=== PATIENT | female | born 1975 | race African-American/Black ===

== ENCOUNTER 2022-05-08 10:57 | Outpatient (CLI) | payer OTHER, SELFPAY ==
[2022-05-08 11:15] LABS: Hematocrit 29.8 % (37.0-47.0); Hemoglobin 8.3 g/dL (12.0-15.0); Immature Platelet Fraction Pct 4.7 % (0.9-11.2); Mean Corpuscular HGB Conc 27.9 g/dl (32-36); Mean Corpuscular Hemoglobin 18.7 pg (26-34); Mean Corpuscular Volume 67.1 fl (80-100); Mean Platelet Volume 10.3 fl (7.4-10.4); Platelet Count Result 247 k/mm3 (150-375); Red Blood Count 4.44 M/mm3 (4.2-5.4); Red Cell Distribution Width 21.9 % (11.5-14.5); White Blood Count 4.7 K/mm3 (4.5-10.0)
[2022-05-08 12:18] LABS: Iron 19 ug/dL (37-170)
[2022-05-08 12:28] LABS: Percent Iron Saturation 3 % (20-50)
[2022-05-08 12:56] LABS: Ferritin 4.32 ng/mL (6.24-137)
== END 2022-05-08 10:58 | disposition home or self-care (01) ==
LOC: ANHLAB 10:58
PROVIDERS: PCP Nurse Practitioner Family; Visit Provider Internal Medicine Hematology & Oncology
DX: D50.0 Iron deficiency anemia secondary to blood loss (chronic) (principal)
CPT/HCPCS: 36415; 82607; 82728; 83540; 83550; 85027; 85055

== ENCOUNTER 2022-05-20 00:15 | Day surgery (SDC) | payer OTHER, SELFPAY ==
[2022-05-14 11:14] VITALS: BMI 29.1
--- NOTE | 2022-05-14 11:23 | PC.NURSE ---
Report to the Outpatient Waiting Room, entrance under the green pavilion located off [facility], at time 0845 on date 05/20/22. OR Time: 1045. - You and your visitor will be asked a series of questions to screen for COVID 19 for your protection. - Only one visitor is allowed at this time. - The patient visitor is requested to leave or wait in car when not with patient. - A mask is required within the hospital. Patients may have clear liquids (water, carbonated beverages, clear teas, apple juice) until 3 hours prior to surgery with a maximum of 20 ounces. - No food from midnight until time of surgery Take the following medications with a SIP of water the morning of surgery: NONE Medications to discontinue per physician: VITAMINS/SUPPLEMENTS Date to take last dose: 05/16/22 Please no make-up, nail romanian, hairspray, perfume, deodorant, or body powder the day of surgery. No jewelry (including any body piercings) or valuables the day of surgery, leave them at home. Please take a shower or bath the night before, or the morning of, surgery with an antibacterial soap. Wear comfortable, loose fitting clothing. - Jewelry must be removed prior to entering the operating room. Rings and piercings that are not removed may be cut off. - The hospital will not accept responsibility for valuables. - Please leave all valuables, including medications, at home the day of surgery. If you are going home after surgery, a licensed wood pile driver operator must drive you home. - NO public transportation without another adult. - We recommend that an adult stay with you for 24 hours following discharge. - We also recommend that you do not drive, make important decision, drink alcoholic beverages, or take any drugs that were not prescribed by your health care provider for at least 24 hours after your discharge time. Follow any additional instructions given to you from your surgeon. If you or anyone in your household have experienced Covid symptoms in the past week, please notify your surgeon or the nurse liaison at the phone number below for possible testing. Telephone instructions given to PT - WILMER METCALF and asked if any additional questions and then verbalized understanding. Patient advised to call surgeon office or pre surgery nurse liaison [phone] if any additional questions.
--- NOTE | 2022-05-19 20:36 | PM.IMHP ---
H&P: HPI History of Present Illness Date/Time: 05/19/22 20:36 Chief Complaint: Endometrial mass Narrative: Kusum is a 46yo, who presents for scheduled surgery. She has a h/o irregular/heavy periods. She states that after her hysteroscopy D&C in 06/2020 (benign endometrium), her periods improved. However, she is starting to have increasingly heavier and painful periods again. Heavy and painful x2 days (dime sized clots); then lighten the last 3 days. She has a known history of fibroid uterus, central 6.2cm fibroid in 05/2020. She had repeat US performed recently showing the mass has increased to 8cm and was unable to visualize the endometrium (uterus measures 14cm). She was also noted to have bilateral ovarian masses (right 4.7cm, left complex ~3cm); tumor markers were performed and were negative. She is s/p parathyroidectomy/partial thyroidectomy. She has a long standing h/o iron deficiency anemia and initially wanted to proceed with hysterectomy, but has a h/o midline vertical c/s x2 + BTL. Review of Systems Review of Systems: All systems reviewed & are unremarkable except as noted in HPI and below PMFSH Past Medical History Medical History Abnormal thyroid biopsy GERD (gastroesophageal reflux disease) Procedure indicated Hysteroscopy with removal of submucous Surgical History Surgical History Delivery by section H/O parathyroidectomy History of tubal ligation Family History Family History Grandparent Heart disease Mother Congestive heart failure Father Cerebrovascular accident Sibling Cervical cancer Social History Social History Smoking status: Never smoker Alcohol intake: current Alcohol use details: 2/MONTH Substance use: current Substance use type: marijuana Living arrangements: with family Additional living arrangements comments: CHILDREN Gender identity (if verbalized by the patient): Female Sexual Orientation (if Verbalized by the Patient): Straight or Heterosexual Spiritual care concerns: No Meds Home Medications and Allergies Home Medications Medication Instructions Recorded Confirmed Type cholecalciferol (vitamin D3) 50 50 mcg PO EVERY OTHER DAY 05/14/22 05/14/22 History mcg (2,000 unit) capsule ferrous sulfate 325 mg (65 mg 325 mg PO DAILY 05/14/22 05/14/22 History iron) tablet (FeroSul) Allergies Allergy/AdvReac Type Severity Reaction Status Date / Time No Known Allergies Allergy Verified 05/14/22 11:13 Exam Const: General: cooperative, healthy appearing, comfortable and no acute distress Resp: Effort & Inspection: normal respiratory effort Cardio: Rate: regular rate GI: Inspection: normal to inspection GI Palp: No abdominal tenderness and Yes Soft to palpation : Other: deferred to OR Skin: General skin exam: normal color Neuro: General: patient oriented x3 Extrem: General: normal to inspection Psych: Appearance: grossly normal Affect: normal affect Attitude: cooperative Assessment and Plan Assessment and plan (1) Endometrial mass: Code(s): N94.89 - Other specified conditions associated with female genital organs and menstrual cycle Status: Acute (2) Fibroid uterus: Code(s): D25.9 - Leiomyoma of uterus, unspecified Status: Acute (3) Iron deficiency anemia: Code(s): D50.9 - Iron deficiency anemia, unspecified Status: Acute Plan - Proceed with hysteroscopy, D&C and possible hysteroscopic myomectomy - Risks and benefits explained in detail and all questions answered
--- NOTE | 2022-05-20 07:02 | WPDANESEPPF ---
Anes - Initial Pre Proc Eval Procedure: Operation Date: 05/20/22 10:45 Proposed Procedures p Hysteroscopy Dilation and Curettage - Marysol Awan MD Date/Time: 05/20/22 07:02 Surgeon: Marysol Awan MD Pre Op Diagnosis: menometrorrhagia Patient Data Age: 47 Gender: F Height: 1.66 m Weight: 80.74 kg Allergies Allergy/AdvReac Type Severity Reaction Status Date / Time No Known Allergies Allergy Verified 05/14/22 11:13 Home Medications Medication Instructions Recorded Confirmed Type cholecalciferol (vitamin D3) 50 50 mcg PO EVERY OTHER DAY 05/14/22 05/14/22 History mcg (2,000 unit) capsule ferrous sulfate 325 mg (65 mg 325 mg PO DAILY 05/14/22 05/14/22 History iron) tablet (FeroSul) Patient hx anesthesia problems: none Family hx anesthesia problems: none Results Review: All pre-operative results and documents have been reviewed as part of the pre-operative evaluation. PENDING SALE TO [facility] Past Medical History Medical History (Updated 05/20/22 @ 07:02 by Denver Arcos DO) Abnormal thyroid biopsy GERD (gastroesophageal reflux disease) Iron deficiency anemia Procedure indicated Hysteroscopy with removal of submucous Surgical History Surgical History Delivery by section H/O parathyroidectomy History of tubal ligation Family History Family History Grandparent Heart disease Mother Congestive heart failure Father Cerebrovascular accident Sibling Cervical cancer Social History Social History Smoking status: Never smoker Alcohol intake: current Alcohol use details: 2/MONTH Substance use: current Substance use type: marijuana Living arrangements: with family Additional living arrangements comments: CHILDREN Gender identity (if verbalized by the patient): Female Sexual Orientation (if Verbalized by the Patient): Straight or Heterosexual Spiritual care concerns: No Anes - Eval Final PreProcedure Day of Procedure 05/20/22 07:02 Patient weight: overweight Heart: regular rate and rhythm Lungs: clear to auscultation Airway: Mallampati scale class II Neurological: alert and oriented Last oral intake: >/= 8 hours ASA classification: II Emergent: no Anesthetic plan: proceed Anesthesia type and monitoring: general GIVS and standard monitoring Results Review: All pre-operative results and documents have been reviewed as part of the pre-operative evaluation. Informed Consent: The patient's anesthetic plan and its attendant risks and benefits were discussed with the patient/family/POA. Questions were solicited and answers provided to the satisfaction of the patient/family/POA.
--- NOTE | 2022-05-20 07:06 | WPDHPUPDATE1 ---
History and Physical Update Update Date/Time: 05/20/22 07:06 History and Physical has been reviewed, including an updated exam of the patient. There are NO changes in the patient's condition. Risks, benefits, and alternatives have been discussed and questions answered. Patient agrees to proceed with procedure.
[2022-05-20 09:00] VITALS: BP 140/90; PULSE 95; RESP 16; TEMP 36.7; O2SAT 100
[2022-05-20] MEDS: LACTATED RINGERS 1,000 ML 30 ML IV CONT (09:30)
[2022-05-20] MEDS: ACETAMINOPHEN 500 MG TABLET 1000 MG PO (09:56)
--- NOTE | 2022-05-20 11:30 | W.PM.PROC2 ---
Procedure Note - Detailed Date of Procedure 05/20/22 Pre-op Diagnosis menometrorrhagia Post-op Diagnosis Other (Fibroid uterus) Procedure Performed Hysteroscopy with dilation and curettage Surgeon Marysol Awan MD Anesthesia MAC Jatin Noe is a 46yo, who presents for scheduled surgery. She has a h/o irregular/heavy periods. She states that after her hysteroscopy D&C in 06/2020 (benign endometrium), her periods improved. However, she is starting to have increasingly heavier and painful periods again. Heavy and painful x2 days (dime sized clots); then lighten the last 3 days. She has a known history of fibroid uterus, central 6.2cm fibroid in 05/2020. She had repeat US performed recently showing the mass has increased to 8cm and was unable to visualize the endometrium (uterus measures 14cm). She was also noted to have bilateral ovarian masses (right 4.7cm, left complex ~3cm); tumor markers were performed and were negative. She is s/p parathyroidectomy/partial thyroidectomy. She has a long standing h/o iron deficiency anemia and initially wanted to proceed with hysterectomy, but has a h/o midline vertical c/s x2 + BTL. Findings Uterus slightly mobile; 12wk size; not too wide; anterior fibroid palpated. Sounded to 12cm. Large intracavitary fibroid obstructing view of the tubal ostia. D&C performed w/o issue and adequate sample obtained. Good hemostasis at end of case. Description of Procedure Kusum was taken operating room where she was placed under sedation without complication. She was then prepped and draped in the usual sterile fashion in a dorsal lithotomy position with her legs in low Cody stirrups. A time-out was performed and no perioperative antibiotics were indicated. An exam under anesthesia was performed and revealed a 12 week size uterus, anteverted, with a large fibroid palpated on the anterior wall, good descensus and did not feel too wide (robotic assisted hysterectomy likely possible). A bivalve speculum was placed within the vagina where the anterior lip of cervix was grasped with a single-tooth tenaculum. The uterus was sounded to 12 cm. The cervix was then serially dilated to allow for the hysteroscope. The hysteroscope was advanced into the uterus where a large fibroid was taking up almost the entire cavity. I was unable to visualize either tubal ostia. Hysteroscope was removed and a gentle curettage was performed without complications and an adequate sample was obtained. Good hemostasis was noted. All instruments were removed from the vagina. Sponge, lap, instrument, needle counts were correct at the end the procedure. Patient was awoken from anesthesia and taken to recovery in a stable condition with plans of same-day discharge home. Estimated Blood Loss 5 Pathology Yes Complications No immediate complications Condition Stable Disposition Same day [facility] Billing Surgery - Charge Forward: Surgery Billing
[2022-05-20 11:35] VITALS: BP 118/77; PULSE 95; RESP 14; O2SAT 96
[2022-05-20 12:10] VITALS: BP 122/76; PULSE 72; RESP 16
[2022-05-20 12:20] VITALS: BP 126/95; PULSE 76; RESP 16
== END 2022-05-20 12:45 | disposition home or self-care (01) ==
PROVIDERS: PCP Nurse Practitioner Family; Visit Provider Obstetrics & Gynecology
PROC: 0U5B8ZZ Destruction of Endometrium, Via Natural or Artificial Opening Endoscopic (ICD-10-PCS; CPT 58563; principal; 2022-05-20 10:45)
DX: N94.89 Other specified conditions associated with female genital organs and menstrual cycle (principal); D25.9 Leiomyoma of uterus, unspecified; D50.9 Iron deficiency anemia, unspecified; F12.90 Cannabis use, unspecified, uncomplicated; K21.9 Gastro-esophageal reflux disease without esophagitis; N85.4 Malposition of uterus
CPT/HCPCS: 58561; 88305; A9270; J2250; J2405; J2704; J3010; J7030; J7120

== ENCOUNTER 2022-08-23 12:34 | Outpatient (CLI) | payer OTHER, SELFPAY ==
[2022-08-23 13:13] LABS: Hematocrit 34.3 % (37.0-47.0); Hemoglobin 9.5 g/dL (12.0-15.0)
== END 2022-08-23 12:35 | disposition home or self-care (01) ==
LOC: ANHSURGERY 12:38
PROVIDERS: Anesthesiology; PCP Nurse Practitioner Family; Visit Provider Obstetrics & Gynecology
DX: Z01.818 Encounter for other preprocedural examination (principal); D50.9 Iron deficiency anemia, unspecified; D25.9 Leiomyoma of uterus, unspecified
CPT/HCPCS: 36415; 85014; 85018; 86850; 86900; 86901

== ENCOUNTER 2022-08-26 12:19 | Inpatient (IN) | payer OTHER, SELFPAY ==
[2022-08-20 14:42] VITALS: BMI 29.1
--- NOTE | 2022-08-20 14:44 | PC.NURSE ---
Report to the Outpatient Waiting Room, entrance under the green pavilion located off [facility], at time 6:00 on date 08/26/22. Planned Procedure Time: 7:30. Time changes happen often and if your time is changed the preop area will call you the afternoon before. - You and your visitor will be asked to self-screen and do not enter if you have any COVID symptoms. - We encourage only one visitor and NO visitors under age 16 are allowed at this time. Your visitor will receive communication by the phone number that is given day of service. - The patient visitor is requested to social distance or may leave the building when not with patient due to restrictions. - A mask is OPTIONAL within the hospital. Patients may have clear liquids (water, carbonated beverages, clear teas, apple juice) until 3 hours prior to surgery (4:30) with a maximum of 20 ounces. - No food from midnight until time of surgery Take the following medications with a SIP of water the morning of surgery: NONE Medications to discontinue per physician: VITAMINS/SUPPLEMENTS Date to take last dose: 08/22/22 Please no make-up, nail beninese, hairspray, perfume, deodorant, or body powder the day of surgery. No jewelry (including any body piercings) or valuables the day of surgery, leave them at home. Please take a shower or bath the night before, or the morning of, surgery with an antibacterial soap. Wear comfortable, loose fitting clothing. - Jewelry must be removed prior to entering the operating room. Rings and piercings that are not removed may be cut off. - The hospital will not accept responsibility for valuables. - Please leave all valuables, including medications, at home the day of surgery. If you are going home after surgery, a licensed patient transportation driver must drive you home. - NO public transportation without another adult. - We recommend that an adult stay with you for 24 hours following discharge. - We also recommend that you do not drive, make important decision, drink alcoholic beverages, or take any drugs that were not prescribed by your health care provider for at least 24 hours after your discharge time. Follow any additional instructions given to you from your surgeon. If you or anyone in your household have experienced Covid symptoms in the past week, please notify your surgeon or the nurse liaison at the phone number below for possible testing. Telephone instructions given to PT - WILMER METCALF and asked if any additional questions and then verbalized understanding. Patient advised to call surgeon office or pre surgery nurse liaison [phone] if any additional questions.
--- NOTE | 2022-08-25 10:19 | PM.IMHP ---
H&P: HPI History of Present Illness Date/Time: 08/25/22 10:19 Chief Complaint: AUB/ fibroid uterus Narrative: Kusum is a 47yo P2002, who presents for scheduled surgery. She underwent HSC/D&C with benign pathology 05/2022. She has a h/o irregular/heavy periods. She states that after her hysteroscopy D&C in 06/2020 (benign endometrium), her periods improved. However, she is starting to have increasingly heavier and painful periods again. Heavy and painful x2 days (dime sized clots); then lighten the last 3 days. She has a known history of fibroid uterus, central 6.2cm fibroid in 05/2020. She had repeat US performed 04/2022 showing the mass has increased to 8cm and was unable to visualize the endometrium (uterus measures 14cm). She was also noted to have bilateral ovarian masses (right 4.7cm, left complex ~3cm); tumor markers were performed and were negative. She has a normal pap smear 11/2021. She has a long standing h/o iron deficiency anemia and wants to proceed with hysterectomy. She has a h/o midline vertical c/s x2 + BTL. Review of Systems Review of Systems: All systems reviewed & are unremarkable except as noted in HPI and below PMFSH Past Medical History Medical History Abnormal thyroid biopsy GERD (gastroesophageal reflux disease) Iron deficiency anemia Procedure indicated Hysteroscopy with removal of submucous Surgical History Surgical History Delivery by section H/O parathyroidectomy History of tubal ligation Family History Family History Grandparent Heart disease Mother Congestive heart failure Father Cerebrovascular accident Sibling Cervical cancer Social History Social History Smoking status: Never smoker Alcohol intake: current Alcohol use details: 2/MONTH Substance use: current Substance use type: marijuana Additional living arrangements comments: CHILDREN Gender identity (if verbalized by the patient): Female Sexual Orientation (if Verbalized by the Patient): Straight or Heterosexual Spiritual care concerns: No Meds Home Medications and Allergies Home Medications Medication Instructions Recorded Confirmed Type ferrous sulfate 325 mg (65 mg 325 mg PO DAILY 05/14/22 08/20/22 History iron) tablet (FeroSul) Allergies Allergy/AdvReac Type Severity Reaction Status Date / Time No Known Allergies Allergy Verified 08/20/22 14:40 Exam Const: General: cooperative, healthy appearing, comfortable and no acute distress Resp: Effort & Inspection: normal respiratory effort Cardio: Rate: regular rate GI: GI Palp: No abdominal tenderness and Yes Soft to palpation : Other: deferred to OR Skin: General skin exam: normal color Neuro: General: patient oriented x3 Extrem: General: normal to inspection Psych: Appearance: grossly normal Affect: normal affect Attitude: cooperative Assessment and Plan Assessment and plan (1) Fibroid uterus: Qualifiers: Uterine leiomyoma location: unspecified location Qualified Code(s): D25.9 - Leiomyoma of uterus, unspecified Code(s): D25.9 - Leiomyoma of uterus, unspecified Status: Acute (2) Iron deficiency anemia: Qualifiers: Iron deficiency anemia type: chronic blood loss Qualified Code(s): D50.0 - Iron deficiency anemia secondary to blood loss (chronic) Code(s): D50.9 - Iron deficiency anemia, unspecified Status: Acute Plan - Proceed with robotic assisted total laparoscopic hysterectomy with bilateral salpingectomy, cystoscopy, possible unilateral oophorectomy, and possible ELAP - risks and benefits in detail
[2022-08-26] VITALS (17 sets, daily range): BP systolic 134–151; BP diastolic 78–90; PULSE 75–105; RESP 14–20; TEMP 36.3–37.7; O2SAT 95–100
[2022-08-26] MEDS: ACETAMINOPHEN 500 MG TABLET 1000 MG PO (06:40)
[2022-08-26] MEDS: LACTATED RINGERS 1,000 ML 30 ML IV CONT ×2 (06:42→10:56)
[2022-08-26] MEDS: KETOROLAC 15 MG/ML VIAL (*BKC) IV PUSH (06:44)
--- NOTE | 2022-08-26 07:00 | WPDHPUPDATE1 ---
History and Physical Update Update Date/Time: 08/26/22 07:00 History and Physical has been reviewed, including an updated exam of the patient. There are NO changes in the patient's condition. Risks, benefits, and alternatives have been discussed and questions answered. Patient agrees to proceed with procedure.
--- NOTE | 2022-08-26 07:01 | P.PNAN_ITS ---
Anes - Initial Pre Proc Eval Procedure: Operation Date: 08/26/22 07:30 Proposed Procedures p Robotic Assisted Total Laparoscopic Hysterectomy with Bilateral Salpingectomy, Possible Unilateral Oophorectomy - Marysol Awan MD Date/Time: 08/26/22 07:01 Surgeon: Marysol Awan MD Pre Op Diagnosis: Uterine Fibroid Patient Data Age: 47 Gender: F Height: 1.66 m Weight: 79.8 kg Last Vital Signs Temp 36.6 C 08/26/22 06:27 Pulse 92 08/26/22 06:27 Resp 16 08/26/22 06:27 BP 145/90 H 08/26/22 06:27 Pulse Ox 99 08/26/22 06:27 O2 Del Method Room Air 08/26/22 06:27 Allergies Allergy/AdvReac Type Severity Reaction Status Date / Time No Known Allergies Allergy Verified 08/26/22 06:23 Home Medications Medication Instructions Recorded Confirmed Type ferrous sulfate 325 mg (65 mg 325 mg PO DAILY 05/14/22 08/26/22 History iron) tablet (FeroSul) Patient hx anesthesia problems: none Family hx anesthesia problems: none Results Review: All pre-operative results and documents have been reviewed as part of the pre- operative evaluation. [facility] Past Medical History Medical History (Updated 08/26/22 @ 07:02 by Denver Arcos DO) Abnormal thyroid biopsy Anemia GERD (gastroesophageal reflux disease) Iron deficiency anemia Osteoarthritis Procedure indicated Hysteroscopy with removal of submucous Surgical History Surgical History Delivery by section H/O parathyroidectomy History of tubal ligation Family History Family History Grandparent Heart disease Mother Congestive heart failure Father Cerebrovascular accident Sibling Cervical cancer Social History Social History Smoking status: Never smoker Alcohol intake: current Alcohol use details: 2/MONTH Substance use: current Substance use type: marijuana Living arrangements: with family Additional living arrangements comments: CHILDREN Gender identity (if verbalized by the patient): Female Sexual Orientation (if Verbalized by the Patient): Straight or Heterosexual Spiritual care concerns: No Anes - Eval Final PreProcedure Day of Procedure 08/26/22 07:01 Patient weight: overweight Heart: regular rate and rhythm Lungs: clear to auscultation Airway: Mallampati scale class II Neurological: alert and oriented Last oral intake: >/= 8 hours ASA classification: II Emergent: no Anesthetic plan: proceed Anesthesia type and monitoring: general ETT and standard monitoring Results Review: All pre-operative results and documents have been reviewed as part of the pre-operative evaluation. Informed Consent: The patient's anesthetic plan and its attendant risks and benefits were discussed with the patient/family/POA. Questions were solicited and answers provided to the satisfaction of the patient/family/POA.
[2022-08-26] MEDS: ceFAZolin 2 GM/D5W 50 ML 2 GM/50 ML BAG IVPB (07:22)
[2022-08-26] MEDS: ceFAZolin SODIUM 1 GM VIAL 2 GM IV PUSH (10:01)
[2022-08-26] MEDS: metroNIDAZOLE 500 MG/ISO 100ML 500 MG/100 ML BAG 100 MG IVPB (10:11)
[2022-08-26] MEDS: LIDO 2%/EPINEPHRINE 1:100,000 50 ML VIAL INFILTRATE (10:36)
--- NOTE | 2022-08-26 10:58 | W.PM.PROC2 ---
Procedure Note - Detailed Date of Procedure 08/26/22 Pre-op Diagnosis Uterine Fibroid AUB Post-op Diagnosis Same Procedure Performed Diagnostic laparoscopy, ELAP, abdominal supra-cervical hysterectomy, lysis of adhesions, bilateral salpingectomy, and cystoscopy Surgeon Marysol Awan MD Music Arranger Beata Anesthesia General Findings Large fibroid uterus; h/o bilateral tubal ligation w/ Filshie clips (2 per side, removed) with adhesions to bilateral pelvic side manzo; normal ovaries, adhesions from the left uterus and mid uterus to anterior abdominal wall, bladder densely adhered to lower uterine segment and cervix. normal bladder that filled without issues; no defects noted, bilateral ureteral jets noted. Good hemostasis as end of case. Uterus and tubes weighed 671.2g Description of Procedure Luci was taken operating room where she was placed under general endotracheal anesthesia without complications. She was then prepped and draped in the usual sterile fashion in the dorsal lithotomy position with her legs in low Cody stirrups, her arms tucked her side, and a strap on her chest. A time-out was performed and she received 2 g Ancef. My attention was turned down below where a bivalve speculum was placed within the vagina. The cervix was easily identified and the anterior lip of cervix was grasped with a single-tooth tenaculum. The uterus was sounded to 14 cm. The cervix was measured at 3 cm. A PHILLIP uterine manipulator was then placed without complications (10cm uterine tip, 3cm cup). A Jiménez catheter was then placed under aseptic technique. My gloves were then changed and my attention was turned to the abdomen. Due to her prior midline vertical incisions decision was made to start at oropeza's point after I verified that NG tube was in place. A 5 mm trocar was placed under direct visualization without complications and the abdomen was insufflated with carbon dioxide gas. The patient was then placed in Trendelenburg (30 degrees) to allow for better visualization of the pelvis. A large fibroid uterus was noted to be adhered to the left pelvic sidewall and anterior abdominal wall. There was minimal movement when trying to move the uterine manipulator and decision was made at that point to proceed with abdominal hysterectomy. The patient was then flattened, pneumoperitoneum remained, and all instruments were then obtained and counted. Due to the patient's prior midline vertical incisions, decision was made to proceed with repeating an additional midline vertical incision. The skin was incised using a scalpel. The subcutaneous tissue was then taken down using Bovie cautery. The fascia was then incised using Bovie cautery and extended superiorly and inferiorly. The peritoneum was then entered and the pneumoperitoneum was released. The incision was extended superiorly and inferiorly with good visualization and without complication. The bowels were then tucked in the upper abdomen using moist laps. The left pelvic and mid uterine adhesions to the anterior abdominal wall were slowly and carefully taken down using the bovie and right angle. An Rishabh self retaining retractor was then placed within the abdomen for better visualization. Since there was more mobility on the right side, that's where I started my procedure. The right fallopian tube remnants with Filshie clips were elevated and the right fallopian tube was removed. The broad ligament was slowly dissected until the right round ligament was identified, it was clamped, coagulated, and transected using the LigaSure device. The posterior leaf of the broad ligament was then incised. The utero-ovarian complex was then doubly crossclamped using Oralia clamps. The complex was then incised using Bovie cautery and the pedicles were suture ligated using 0 Vicryl. Good hemostasis was noted. The bladder flap was further developed on the right side, however dense adhesions were noted to the cervix and de
[2022-08-26] MEDS: fentaNYL CITRATE INJ (*CRX) 100 MCG/2 ML VIAL 25 MCG IV PUSH ×6 (11:14→12:01)
[2022-08-26] MEDS: LACTATED RINGERS 1,000 ML 75 ML IV CONT ×2 (12:30→20:10)
[2022-08-26] MEDS: KETOROLAC 30 MG/ML VIAL (*BKC) IV PUSH ×2 (12:30→19:45)
[2022-08-26] MEDS: HYDROmorphon 0.2MG/ML PCA(*CRX 6 MG/30 ML PCA.VIAL 1 MG IV CONT (13:05)
[2022-08-26] MEDS: DOCUSATE SODIUM 100 MG CAPSULE PO (19:45)
[2022-08-27 00:20] VITALS: BP 137/85; PULSE 89; RESP 16; RESP 18; TEMP 36.9; O2SAT 100
[2022-08-27 02:00] VITALS: RESP 16; O2SAT 98
[2022-08-27 04:40] VITALS: BP 141/88; PULSE 83; RESP 18; TEMP 36.8; O2SAT 99
[2022-08-27] MEDS: KETOROLAC 30 MG/ML VIAL (*BKC) IV PUSH (04:48)
[2022-08-27 05:37] LABS: Anion Gap 10 mmol/L (8-16); Blood Urea Nitrogen 6 mg/dL (7-17); Calcium 7.9 mg/dL (8.4-10.2); Carbon Dioxide 26 mmol/L (22-30); Chloride 100 mmol/L (98-107); Estimated CRCL calculation 92 ml/min; Estimated Glomerular Filt Rate > 60; Glucose 100 mg/dL (65-110); Potassium 3.4 mmol/L (3.4-5.0); Sodium 136 mmol/L (137-145)
[2022-08-27 06:14] LABS: Basophils Percent Auto 0.1 % (0.2-1.2); Hematocrit 27.9 % (37.0-47.0); Hemoglobin 8.1 g/dL (12.0-15.0); Immature Granulocyte Absolute 0.06 K/mm3 (0.00-0.031); Immature Granulocyte Percent A 0.5 % (0-0.5); Immature Platelet Fraction Pct 6.3 % (0.9-11.2); Lymphocytes Absolute Auto 1.93 K/mm3 (0.9-3.2); Lymphocytes Percent Auto 15.4 % (18.3-44.2); Mean Corpuscular Hemoglobin 18.9 pg (26-34); Mean Platelet Volume 11.2 fl (7.4-10.4); Monocytes Absolute Auto 1.2 K/mm3 (0.1-0.6); Monocytes Percent Auto 9.3 % (2.6-8.5); Neutrophils Absolute Auto 9.4 K/mm3 (1.3-6.7); Neutrophils Percent Auto 74.7 % (45.5-73.1); Platelet Count Result 280 k/mm3 (150-375); Red Blood Count 4.29 M/mm3 (4.2-5.4); Red Cell Distribution Width 19.5 % (11.5-14.5); White Blood Count 12.6 K/mm3 (4.5-10.0)
--- NOTE | 2022-08-27 07:06 | PM.GYNPNOP ---
MISSILE INSPECTOR PREFLIGHT - A/P Assessment and plan (1) S/P abdominal supracervical subtotal hysterectomy: Code(s): Z90.711 - Acquired absence of uterus with remaining cervical stump Status: Acute Postoperative Procedures: Procedures Operation Date: 08/26/22 07:30 Actual Procedure Side Surgeon p Total Abdominal Supracervical Hysterectomy with Bilateral Salpingectomy, Cystoscopy Bilateral Marysol Awan MD Postoperative day: 1 Postoperative status: doing well Postoperative plan: routine post-op care and discharge (possibly this PM) Time Spent With Patient Time: Total time spent is greater than 50% in coordination of care (as documented) at patient's floor/unit and/or counseling patient: Time with patient: less than 15 minutes MISSILE INSPECTOR PREFLIGHT- PN:Subj Post-Op Subjective Date/time seen: 08/27/22 07:06 Interval history: POD#1 Kusum reports doing great this morning. Her pain is controlled (minimal use of the SALES ADMINISTRATION SPECIALIST overnight; 2.4mg). She has tolerated regular diet overnight. She has voided, passed gas, and ambulated in the room. No vaginal bleeding. She would like to go home later today. Review of Systems Constitutional: Constitutional: Denies chills, Denies fever(s) and Denies headache(s) ENT: Denies dizziness and Denies headache(s) Cardiovascular: Cardiovascular: Denies chest pain, Denies palpitations and Denies dyspnea Respiratory: Respiratory: Denies cough and Denies dyspnea Gastrointestinal: Gastrointestinal: Denies nausea and Denies vomiting Genitourinary: Comments: no bleeding Neurologic: Denies dizziness and Denies headache(s) Endocrine: Endocrine: Denies palpitations Exam Const: General: cooperative, healthy appearing, comfortable and no acute distress Orientation/consciousness: patient oriented x3 Resp: Effort & Inspection: normal respiratory effort Auscultation: clear to auscultation bilaterally Cardio: Rate: regular rate GI: Inspection: non-distended and incision (midline vertical; covered w/ dermabond; c/d/i) GI Palp: Yes abdominal tenderness (appropriate) and Yes Soft to palpation Auscultation: normal bowel sounds Skin: General skin exam: normal color Neuro: General: patient oriented x3 Extrem: General: normal to inspection Psych: Appearance: grossly normal Affect: normal affect Attitude: cooperative MISSILE INSPECTOR PREFLIGHT - PN: Obj Data Vital Signs Vital Signs: Vital Signs - 24 hr 08/26/22 10:56 08/26/22 11:10 08/26/22 11:25 Temperature 97.8 F Pulse Rate 105 H 101 H 101 H Respiratory Rate 20 20 16 Blood Pressure 142/90 H 147/89 H 144/86 H Pulse Oximetry 100 100 100 Oxygen Delivery Simple Face Mask Simple Face Mask Simple Face Mask Oxygen Flow Rate 6 6 6 08/26/22 11:30 08/26/22 11:40 08/26/22 11:55 Temperature Pulse Rate 105 H 104 H Respiratory Rate 14 16 Blood Pressure 141/84 H 135/85 Pulse Oximetry 98 97 Oxygen Delivery Room Air Room Air Room Air Oxygen Flow Rate 08/26/22 12:10 08/26/22 12:40 08/26/22 13:05 Temperature 99.8 F H Pulse Rate 98 78 Respiratory Rate 14 16 16 Blood Pressure 146/79 H 135/80 Pulse Oximetry 95 99 97 Oxygen Delivery Room Air Oxygen Flow Rate 08/26/22 12:30 08/26/22 14:00 08/26/22 15:00 Temperature Pulse Rate 78 Respiratory Rate 16 16 14 Blood Pressure Pulse Oximetry 97 100 97 Oxygen Delivery Room Air Oxygen Flow Rate 08/26/22 16:00 08/26/22 17:00 08/26/22 17:00 Temperature 97.4 F L Pulse Rate 75 78 Respiratory Rate 16 16 16 Blood Pressure 151/90 H Pulse Oximetry 97 98 97 Oxygen Delivery Room Air Oxygen Flow Rate 08/26/22 18:00 08/26/22 20:00 08/26/22 20:00 Temperature 98.4 F Pulse Rate 80 Respiratory Rate 16 16 Blood Pressure 134/78 Pulse Oximetry 98 99 Oxygen Delivery Room Air Oxygen Flow Rate 08/27/22 00:20 08/27/22 00:20 08/26/22 20:00 Temperature 98.5 F Pulse Rate 89 Respiratory Rate 16 16 Blood Pressure 137/85 Pulse Oximetry 100 99 Oxygen Deliver
[2022-08-27 07:50] VITALS: BP 140/80; PULSE 82; RESP 18; TEMP 37.5; O2SAT 98
[2022-08-27 07:52] LABS: Platelet Estimate Adequate (Adequate)
[2022-08-27 07:53] LABS: Anisocytosis 1+ (NORMAL); Ovalocytes 1+ (NORMAL); Poikilocytosis 1+ (NORMAL); Schistocytes 1+ (NORMAL)
[2022-08-27 09:00] VITALS: PULSE 82; RESP 18; O2SAT 98
[2022-08-27] MEDS: SIMETHICONE 80 MG TAB.CHEW PO (09:47)
[2022-08-27] MEDS: DOCUSATE SODIUM 100 MG CAPSULE PO (09:47)
[2022-08-27] MEDS: FERROUS SULFATE 324 MG TABLET PO (09:50)
[2022-08-27] MEDS: oxyCODONE HCL (*CRX) 5 MG TAB IR PO ×2 (09:50→13:42)
[2022-08-27] MEDS: ACETAMINOPHEN 500 MG TABLET 1000 MG PO (09:50)
--- NOTE | 2022-08-27 11:13 | WPDANESPN ---
Anes - Prog Note Post-Op Date/Time: 08/27/22 11:13 Cardiovascular status: normal Respiratory status: normal Airway patency: baseline Mental status: baseline Post-Op hydration status: normal Vital Signs: Last Vital Signs Temp 99.5 F 08/27/22 07:50 Pulse 82 08/27/22 09:00 Resp 18 08/27/22 09:00 BP 140/80 08/27/22 07:50 Pulse Ox 98 08/27/22 09:00 O2 Del Method Room Air 08/27/22 09:00 O2 Flow Rate 6 08/26/22 11:25 Pain Score (VAS): 3 I/O: Intake & Output 08/26/22 08/27/22 08/27/22 23:59 07:59 15:59 Intake Total 2000 900 Output Total 1525 1600 Balance 475 -700 Laboratory Tests 08/27/22 05:10 08/27/22 05:10 08/27/22 08/27/22 05:10 05:10 WBC 12.6 H RBC 4.29 Hgb 8.1 L Hct 27.9 L MCV 65.0 L MCH 18.9 L MCHC 29.0 L RDW 19.5 H Plt Count 280 MPV 11.2 H Immature Gran % (Auto) 0.5 Neut % (Auto) 74.7 H Lymph % (Auto) 15.4 L Gonzales % (Auto) 9.3 H Eos % (Auto) 0.0 Baso % (Auto) 0.1 L Lymph # (Auto) 1.93 Gonzales # (Auto) 1.2 H Eos # (Auto) 0.0 Baso # (Auto) 0.0 Abs Immat Gran (auto) 0.06 H Absolute Neuts (auto) 9.4 H Absolute Nucleated RBC 0.0 Nucleated RBC % 0.0 Platelet Estimate Adequate % Immature Plt Fraction 6.3 Poikilocytosis 1+ Anisocytosis 1+ Ovalocytes 1+ Schistocytes 1+ Sodium 136 L Potassium 3.4 Chloride 100 Carbon Dioxide 26 Anion Gap 10 BUN 6 L Creatinine 0.70 Estim Creat Clear Calc 92 Estimated GFR > 60 Glucose 100 Calcium 7.9 L Post-procedural complaints: none Patient Feedback: Patient satisfied with anesthetic care.
--- NOTE | 2022-09-03 08:05 | PM.DS ---
DS: Admitting Diagnosis Discharge Date 08/27/22 Admitting Diagnosis AUB Fibroid uterus DS: Discharge Diagnosis Discharge Diagnosis Plan S/p diagnostic laparoscopy, abdominal supracervical hysterectomy, lysis of adhesions, bilateral salpingectomy, cystoscopy DS: Summary Hospital Course Hospital Course: She was admitted for scheduled hysterectomy. We did a diagnostic laparoscopy and proceed with open abdominal supra-cervical hysterectomy due to the size of the uterus and adhesions. Her post-op course was uncomplicated. Her labs/vitals were stable. She was ambulating, tolerating PO, voiding, passing flatus and had good pain control and desired to be discharged home on POD #1 Status at Discharge Functional status at discharge: independent ambulation Overall status at discharge: patient is back to baseline Time Spent with Patient Time attestation: Total time spent providing and/or coordinating discharge services: Time spent: Less than 30 minutes Exam Const: General: cooperative, healthy appearing, comfortable and no acute distress Orientation/consciousness: patient oriented x3 Resp: Effort & Inspection: normal respiratory effort Auscultation: clear to auscultation bilaterally Cardio: Rate: regular rate GI: Inspection: non-distended and incision (mid line vertical) GI Palp: Yes abdominal tenderness (appropriate) and Yes Soft to palpation Auscultation: normal bowel sounds Skin: General skin exam: normal color Neuro: General: patient oriented x3 Extrem: General: normal to inspection Psych: Appearance: grossly normal Affect: normal affect Attitude: cooperative DS: Data Data Completed and Pending Completed studies during hospitalization: Pending at discharge 08/26/22 09:48 Surgical [PTH] Routine Discharge Plan Discharge Attending physician on discharge: Marysol Awan Discharging Clinician: Marysol Awan Anticipated Discharge Date/Time: 08/27/22 15:00 Patient Disposition: Home, Self-Care Activity: may drive after 2 weeks and pelvic rest Diet: regular Discharge Instructions: No heavy lifting greater than 10 pounds for 6 weeks Nothing in the vagina for 6 wks You can shower regularly. Go to ER with any severe pain, nausea, vomiting, or fevers Patient Instructions: Antibiotic Form, Hysterectomy (DC) Stand Alone Forms: General Discharge Information Follow-up/Referrals: Marysol Awan MD [Physician] - 2 Weeks Discharge Medications: New acetaminophen 500 mg Tablet 1,000 mg PO Q6H Qty: 60 0RF ibuprofen 400 mg Tablet 800 mg PO Q8H Qty: 30 0RF docusate sodium 100 mg Capsule 100 mg PO BID Qty: 60 0RF oxycodone 5 mg Tablet See Rx Instructions .ROUTE .COMPLEX PRN (Reason: pain (scale score 7-10)) 3 Days Qty: 24 0RF Rx Instructions: Take 1 to 2 tablets orally every 4-6 hours as needed for severe pain. Max 8 tablets in 24 hours Continued ferrous sulfate [FeroSul] 325 mg (65 mg iron) tablet 325 mg PO DAILY 60 Days Qty: 60 0RF Date of admission: 08/26/22 13:18 Primary Care Provider: MonicaTiffanie Admitting Provider: Marysol Awan Attending physician on admission: Marysol Awan Condition: Stable
== END 2022-08-27 13:45 | disposition home or self-care (01) | DRG 519 ==
LOC: ANHOB2 12:23
PROVIDERS: Admitting Provider Obstetrics & Gynecology; PCP Nurse Practitioner Family; Visit Provider Obstetrics & Gynecology
PROC: 0UT90ZL Resection of Uterus, Supracervical, Open Approach (ICD-10-PCS; principal; 2022-08-26 07:30)
DX: D25.9 Leiomyoma of uterus, unspecified (principal); D50.0 Iron deficiency anemia secondary to blood loss (chronic); N32.89 Other specified disorders of bladder; N93.9 Abnormal uterine and vaginal bleeding, unspecified; K21.9 Gastro-esophageal reflux disease without esophagitis
CPT/HCPCS: 36415; 80048; 85025; 85055; 88307; A9270; J0690; J1100; J1170; J1885; J2250; J2405; J2704; J2710; J3010; J7030; J7120